=== PATIENT | male | born 1995 | race Caucasian/White ===

== ENCOUNTER 2017-08-14 17:06 | Emergency (ER) | payer SELFPAY | END 2017-08-14 22:08 | disposition left against medical advice (07) | LOC: FTE 22:08 | DX: Z53.21 Procedure and treatment not carried out due to patient leaving prior to being seen by health care provider (principal) ==

== ENCOUNTER 2017-08-15 13:55 | Emergency (ER) | payer MEDICAID | END 2017-08-15 16:52 | disposition home or self-care (01) | LOC: FTE 13:55 | DX: H10.9 Unspecified conjunctivitis (principal) | CPT/HCPCS: 99284; Z7502 ==

== ENCOUNTER 2018-08-27 23:46 | Emergency (ER) | payer SELFPAY, MEDICAID | END 2018-08-28 01:35 | disposition home or self-care (01) | LOC: FTE 23:46 | DX: H10.021 Other mucopurulent conjunctivitis, right eye (principal) | CPT/HCPCS: 99283 ==